=== PATIENT | female | born 1950 | race Caucasian/White ===

== ENCOUNTER 2018-10-06 21:33 | Emergency (ER) | payer MEDICARE ==
[~2018-10-06] VITALS: Ht 162.6 cm; Wt 59.0 kg
[~2018-10-06 21:33] MED LIST: CA C1TAB31 PO; EST45C VG; FA/M1TAB29 PO; FLC1T PO; FLUO20CA25 PO; HAIR PO; HYDR-2890 PO; LD5PT TOP; OXYC-191 PO; SIMV40TA4 PO; VITAMIN B12 IM; VITAMIN PO; ZOLP6.252 PO
--- NOTE | 2018-10-06 21:57 | ED Headache ---
General Chief Complaint: Head/Cervical Problems Stated Complaint: VOMITING; HEADACHE Source: patient, family History of Present Illness Date Seen by Provider: Oct 06, 2018 Time Seen by Provider: 21:53 Initial Comments Onset of headache this morning with associated nausea and intermittent vomiting. States worse than typical headaches. Timing/Duration: constant Severity/Quality: moderate Location: frontal, temporal Prior Headaches/Recent Trauma: occasional headaches Associated Symptoms: No confusion, No fatigue, No facial pain, No fever/chills, No flushing, No loss of consciousness; nausea/vomiting; No nasal congestion, No nasal drainage, No numbness in legs/feet, No rash, No seizures, No sinus infection, No stiff neck, No vision changes, No weakness Allergies and Home Medications Allergies Coded Allergies: mannitol (Unverified Allergy, Unknown, "WHOLE BODY ACHES" VOMITING, 05/20/13) water for injection,sterile (Unverified Allergy, Unknown, "WHOLE BODY ACHES" VOMITING, 05/20/13) zoledronic acid (Unverified Allergy, Unknown, "WHOLE BODY ACHES" VOMITING, 05/20/13) Home Medications Ca Carbonate/Vitamin D3/Vit K 1 Each Tab.chew, 1 EACH PO HS, (Reported) Estrogens,Conjugated 45 Gm Tube, 1 GM VG UD PRN for Q3DAYS, (Reported) Fa/Multivits-Min/Lycopene/Lut 1 Each Tablet, 1 TAB PO DAILY, (Reported) Fluoxetine Hcl 20 Mg Capsule, 20 MG PO DAILY, (Reported) Folic Acid 1 Mg Tablet, 1 MG PO DAILY, (Reported) Hydrocodone Bit/Acetaminophen 1 Each Tablet, 1 TAB PO Q4H, (Reported) PRN PAIN Lidocaine 1 Ea Patch, 1 EACH TOP Q12H, (Reported) Oxycodone Hcl/Acetaminophen 1 Tab Tablet, 1 TAB PO Q4H PRN for PAIN, (Reported) PRN PAIN Promethazine HCl 25 Mg Tablet, 25 MG PO Q6H PRN for NAUSEA/VOMITING Prescribed by: JANELLE BARLOW on 10/06/182224 Simvastatin 40 Mg Tablet, 40 MG PO HS, (Reported) Zolpidem Tartrate 6.25 Mg/Bottle Tab.mphase, 6.25 MG PO HS, (Reported) [Hair & Nail Vitamin] , 2 CAP PO DAILY, (Reported) [Vitamin B12] , 1,000 MCG IM EVERY 4 WEEKS, (Reported) Patient Home Medication List Home Medication List Reviewed: Yes Review of Systems Review of Systems Constitutional: see HPI; No dizziness, No fever; malaise; No weakness Eyes: Denies Blindness, Denies Pain, Denies Photophobia Ears, Nose, Mouth, Throat: denies ear pain, denies ear discharge Respiratory: No cough, No dyspnea on exertion Cardiovascular: No chest pain, No syncope Gastrointestinal: No abdominal pain; nausea, vomiting Musculoskeletal: No back pain, No neck pain Psychiatric/Neurological: Headache; Denies Numbness, Denies Paresthesia, Denies Pre-Existing Deficit, Denies Seizure; Tremors; Denies Weakness Past Fahplyz-Rglycc-Awoptt Hx Past Med/Social Hx: Reviewed Nursing Past Med/Soc Hx Patient Social History Alcohol Use: Denies Use Recreational Drug Use: No Smoking Status: Never a Smoker 2nd Hand Smoke Exposure: No Physical Abuse: No Sexual Abuse: No Mistreated: No Fear: No Physical Exam Vital Signs Vital Signs - First Documented 10/06/18 21:48 Temp 98.2 Pulse 105 Resp 20 B/P (MAP) 147/78 (101) Pulse Ox 97 O2 Delivery Room Air Capillary Refill : Height, Weight, BMI Height: 5'2.00" Weight: 168lbs. oz. 76.374401ci; BMI Method: General Appearance: WD/WN, no apparent distress HEENT: PERRL/EOMI, TMs normal; No photophobia Neck: non-tender, full range of motion, supple Cardiovascular: regular rate, rhythm, no edema, no JVD Respiratory: chest non-tender, lungs clear, normal breath sounds Gastrointestinal: normal bowel sounds, non tender, soft, no organomegaly; No guarding, No rebound Extremities: normal range of motion, non-tender, no pedal edema, no calf tenderness, normal capillary refill Psychiatric: alert, oriented x 3; No lethargic, No unresponsive Crainal Nerves: normal hearing, normal speech; No abnormal speech, No facial asymmetry, No facial droop, No facial paresthesias, No facial weakness, No gaze palsy Motor/Sensory: no motor deficit, no sensory deficit, no pronator drift Skin: normal color, warm/dry; No rash Progress/Results/Core Measures Results/Orders My Orders Orders - JANELLE BARLOW DO Ct Head Wo (10/06/18 21:47) Ketorolac Injection (Toradol Injection) (10/06/18 22:30) Promethazine Injection (Phenergan Injec (10/06/18 22:30) Promethazine Injection (Phenergan Injec (10/06/18 22:19) Medications Given in ED Current Medications Medications Dose Ordered Sig/Rosalina Route Start Time Stop Time Status Last Admin Dose Admin Ketorolac Tromethamine 30 mg ONCE ONCE IM 10/06/18 22:30 10/06/18 22:31 DC 10/06/18 22:31 30 MG Promethazine HCl 25 mg ONCE ONCE IM 10/06/18 22:30 10/06/18 22:39 DC 10/06/18 22:30 25 MG Vital Signs/I&O 10/06/18 10/06/18 21:48 22:39 Temp 98.2 Pulse 105 85 Resp 20 18 B/P (MAP) 147/78 (101) 132/63 (86) Pulse Ox 97 95 O2 Delivery Room Air Room Air Diagnostic Imaging Diagonstic Imaging: CT Plain Films/CT/US/NM/MRI: head Comments normal Reviewed: Reviewed by Me Departure Impression Primary Impression: Headache Qualified Codes: R51 - Headache Disposition: 01 HOME, SELF-CARE Condition: Stable Departure-Patient Inst. Decision time for Depature: 22:19 Referrals: ALEJANDRO BOND DO (PCP/Family) Primary Care Physician Patient Instructions: Headache, Adult (DC) Scripts Promethazine HCl (Promethazine Tablet) 25 Mg Tablet 25 MG PO Q6H PRN for NAUSEA/VOMITING, #10 TAB Prov: JANELLE BARLOW DO 10/06/18 JANELLE BARLOW DO Oct 06, 2018 21:57
--- NOTE | 2018-10-06 22:05 | Diagnostic Imaging Report ---
PROCEDURE: CT head without contrast. TECHNIQUE: Multiple contiguous axial images were obtained through the brain without the use of intravenous contrast. Auto Exposure Controls were utilized during the CT exam to meet ALARA standards for radiation dose reduction. INDICATION: Headache. Dizziness. COMPARISON: None. FINDINGS: No intracranial hemorrhage, mass effect, hydrocephalus or extra-axial fluid collections. No CT evidence of a territorial infarction. Osseous structures are intact. The visualized paranasal sinuses and mastoids are clear. IMPRESSION: No acute intracranial CT findings. Dictated by: Dictated on workstation # [id number]
[2018-10-06] MEDS ORDERED: PROMETHAZINE INJ 25 MG/ML (PHENERGAN) AMP ONE (22:19)
[2018-10-06] MEDS ORDERED: PROM25TA14 PO (22:25)
[2018-10-06] MEDS ORDERED: KETOROLAC 60 MG/2 ML VIAL IM ONE (22:30)
[2018-10-06] MEDS ORDERED: PROMETHAZINE INJ 25 MG/ML (PHENERGAN) AMP IM ONE (22:30)
[2018-10-06] MEDS ORDERED: PROMETHAZINE 25 MG (PHENERGAN) TAB PO ONE (22:30)
[2018-10-06 22:39] VITALS: BP 132/63
== END 2018-10-06 22:39 | disposition home or self-care (01) ==
LOC: EDUNIT# 21:33 → ER FS 21:34
DX: R51 Headache (principal); Z88.8 Allergy status to other drugs, medicaments and biological substances
CPT/HCPCS: 70450

== ENCOUNTER 2019-07-05 22:54 | Emergency (ER) | payer MEDICARE, BC ==
[~2019-07-05] VITALS: Ht 152.4 cm; Wt 50.2 kg
[~2019-07-05 22:54] MED LIST changes: +PROM25TA14 PO
--- OUTSIDE RECORDS SUMMARY | 2019-07-05 23:02 | XMS REPORT | Continuity of Care Document ---
Author Organization Unknown Address Unknown Phone Unavailable Allergies Active Description Code Type Severity Reaction Onset Reported/Identified Relationship to Patient Clinical Status Yes mannitol [id number] Drug Allergy Unknown "WHOLE BODY ACH 05/20/2013 Yes water for injection,sterile [id number] Drug Allergy Unknown "WHOLE BODY ACH 05/20/2013 Yes zoledronic acid [id number] D rug Allergy Unknown "WHOLE BODY ACH 05/20/2013 Medications There is no data. Problems Date Dx Coded Attending Type Code Diagnosis Diagnosed By 05/23/2013 RAYMOND MERINO MD Ot 338. 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 4 CHRONIC PAIN SYNDROME 10/06/2018 RAYMOND MERINO MD Ot 724. 2 LUMBAGO 10/06/2018 RAYMOND MERINO MD Ot V72. 63 PRE-PROCEDURAL LABORATORY EXAMINATION 10/06/2018 RAYMOND MERINO MD Ot V72. 84 EXAM PRE-OPERATIVE NOS 10/06/2018 RAYMOND MERINO MD Ot V74. 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 4 CHRONIC PAIN SYNDROME 10/06/2018 RAYMOND MERINO MD Ot 724. 2 LUMBAGO 10/06/2018 RAYMOND MERINO MD Ot V72. 63 PRE-PROCEDURAL LABORATORY EXAMINATION 10/06/2018 RAYMOND MERINO MD Ot V72. 84 EXAM PRE-OPERATIVE NOS 10/06/2018 RAYMOND MERINO MD Ot V74. 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 Results There is no data. Encounters ACCT No. Visit Date/Time Discharge Status Pt. Type Provider Facility Loc./Unit Complaint [id number] 10/06/2018 21:34:00 019 22:39:00 DIS Emergency JANELLE BARLOW DO [facility] ER FS VOMITING; HEADA FERNANDO [id number] 07/19/2013 06:06:00 014 12:10:00 DIS Outpatient RK HESS MD [facility] SDC LUMBARGO [id number] 07/11/2013 09:40:00 014 23:59:59 CLS Outpatient RK HESS MD [facility] RAD RADICULOPATHY [id number] 07/05/2013 08:16:00 23:59:59 CLS Outpatient RK HESS MD [facility] PREOP LUMBARGO [id number] 05/23/2013 10:50:00 014 15:35:00 DIS Outpatient RAYMOND MERINO MD [facility] SDC CHRONIC PAIN SYNDROME [id number] 05/20/2013 11:45:00 23:59:59 CLS Outpatient RAYMOND MERINO MD [facility] PREOP CHRONIC PAIN SYNDROME [id number] 01/08/2013 14:07:00 23:59:59 CLS Outpatient [id number] 07/03/2012 11:04:00 23:59:59 CLS Outpatient
[2019-07-05] MEDS ORDERED: fentaNYL INJECTION 100 MCG/2 ML AMP IVP ONE (23:15)
[2019-07-05] MEDS ORDERED: ONDANSETRON 4 MG/2 ML (SDV) Z0FRAN IVP ONE (23:15)
[2019-07-05 23:21] LABS: BASOPHILS % (AUTO) 1 % (0-10); EOSINOPHILS % (AUTO) 1 % (0-10); HEMATOCRIT 38 % (35-52); HEMOGLOBIN 12.8 G/DL (11.5-16.0); LYMPHOCYTES % (AUTO) 26 % (12-44); MEAN CORPUSCULAR HEMOGLOBIN 32 PG (25-34); MEAN CORPUSCULAR HGB CONC 34 G/DL (32-36); MEAN CORPUSCULAR VOLUME 94 FL (80-99); MEAN PLATELET VOLUME 10.6 FL (7.4-10.4); MONOCYTES # (AUTO) 0.2 X 10^3 (0.0-1.0); MONOCYTES % (AUTO) 4 % (0-12); NEUTROPHILS # (AUTO) 2.7 X 10^3 (1.8-7.8); NEUTROPHILS % (AUTO) 69 % (42-75); PLATELET COUNT 204 10^3/uL (130-400); RED CELL DISTRIBUTION WIDTH 12.3 % (10.0-14.5); WHITE BLOOD COUNT 3.9 10^3/uL (4.3-11.0)
[2019-07-05 23:35] LABS: BUN/CREATININE RATIO 16; CALCIUM 8.8 MG/DL (8.5-10.1); CARBON DIOXIDE 23 MMOL/L (21-32); CHLORIDE 103 MMOL/L (98-107); CREATININE SERUM 0.73 MG/DL (0.60-1.30); GFR ESTIMATED > 60; GLUCOSE 157 MG/DL (70-105); POTASSIUM 3.7 MMOL/L (3.6-5.0); SODIUM 140 MMOL/L (135-145)
[2019-07-06] MEDS ORDERED: PROC-1 PO (00:07)
[2019-07-06] MEDS ORDERED: PROCHLORPERAZINE 10 MG/2ML INJ (COMPAZINE) IV ONE (00:15)
[2019-07-06 00:27] VITALS: BP 128/73
[2019-07-06] MEDS ORDERED: diphenhydrAMINE 50 MG/ML INJ (BENADRYL) IVP ONE (00:30)
--- NOTE | 2019-07-06 05:35 | Diagnostic Imaging Report ---
PROCEDURE: CT head without contrast. TECHNIQUE: Multiple contiguous axial images were obtained through the brain without the use of intravenous contrast. Auto Exposure Controls were utilized during the CT exam to meet ALARA standards for radiation dose reduction. INDICATION: Headache. Nausea and vomiting. COMPARISON: CT head on 10/06/2018. FINDINGS: No large acute territorial ischemia, mass, or hemorrhage. No midline shift or mass effect. Decreased attenuation is seen in the periventricular and subcortical white matter. The ventricles and cortical sulci are prominent. The basilar cisterns are patent and unremarkable. The calvarium is intact. The visualized paranasal sinuses are clear. IMPRESSION: 1. No large acute territorial ischemia, mass, or hemorrhage. 2. Chronic microvascular disease. 3. Generalized parenchymal volume loss. Agree with overnight report. Dictated by: Dictated on workstation # [id number]
--- NOTE | 2019-07-06 05:56 | ED General ---
General Chief Complaint: Neuro-Stroke Like Symptoms Stated Complaint: HEADACHE,VOMITING Nursing Triage Note: Patient presents to the ER with complaints of headache and vomiting. Patient is confused. Patient is alert to place but is unable to tell this RN the year. Patient is unable to answer most questions. Patient does state that her is typically present when she goes to the doctor to answer questions. confirms she has alzheimers. Nursing Sepsis Screen: No Definite Risk Source of Information: Patient, Caregiver Exam Limitations: No Limitations History of Present Illness Date Seen by Provider: July 06, 2019 Time Seen by Provider: 23:05 Initial Comments Patient with history of dementia and migraine headaches who presents with typical headache starting 4 hours prior to ED arrival. No falls, trauma. No extremity weakness loss of sensation. This is not the worst headache the patient's life. Pt. Patient is not more confused than normal. No recent falls, injuries. Ibuprofen taken prior to ED arrival without improvement. History obtained from the patient's spouse. Timing/Duration: 4-6 Hours Severity: Moderate Modifying Factors: improves with Medication Associated Systoms: Other Allergies and Home Medications Allergies Coded Allergies: mannitol (Unverified Allergy, Unknown, "WHOLE BODY ACHES" VOMITING, 05/20/13) water for injection,sterile (Unverified Allergy, Unknown, "WHOLE BODY ACHES" VOMITING, 05/20/13) zoledronic acid (Unverified Allergy, Unknown, "WHOLE BODY ACHES" VOMITING, 05/20/13) Home Medications Ca Carbonate/Vitamin D3/Vit K 1 Each Tab.chew, 1 EACH PO HS, (Reported) Estrogens,Conjugated 45 Gm Tube, 1 GM VG UD PRN for Q3DAYS, (Reported) Fa/Multivits-Min/Lycopene/Lut 1 Each Tablet, 1 TAB PO DAILY, (Reported) Fluoxetine Hcl 20 Mg Capsule, 20 MG PO DAILY, (Reported) Folic Acid 1 Mg Tablet, 1 MG PO DAILY, (Reported) Hydrocodone Bit/Acetaminophen 1 Each Tablet, 1 TAB PO Q4H, (Reported) PRN PAIN Lidocaine 1 Ea Patch, 1 EACH TOP Q12H, (Reported) Oxycodone Hcl/Acetaminophen 1 Tab Tablet, 1 TAB PO Q4H PRN for PAIN, (Reported) PRN PAIN Prochlorperazine Maleate 10 Mg Tablet, 10 MG PO Q12H PRN for NAUSEA-1ST LINE Prescribed by: UZAIR ZAIDI on 07/06/19 0007 Promethazine HCl 25 Mg Tablet, 25 MG PO Q6H PRN for NAUSEA/VOMITING Prescribed by: JANELLE BARLOW on 10/06/182224 Simvastatin 40 Mg Tablet, 40 MG PO HS, (Reported) Zolpidem Tartrate 6.25 Mg/Bottle Tab.mphase, 6.25 MG PO HS, (Reported) [Hair & Nail Vitamin] , 2 CAP PO DAILY, (Reported) [Vitamin B12] , 1,000 MCG IM EVERY 4 WEEKS, (Reported) Patient Home Medication List Home Medication List Reviewed: Yes Review of Systems Review of Systems Constitutional: no symptoms reported EENTM: no symptoms reported Respiratory: no symptoms reported Cardiovascular: no symptoms reported Genitourinary: no symptoms reported Musculoskeletal: no symptoms reported Skin: no symptoms reported Psychiatric/Neurological: See HPI Hematologic/Lymphatic: No Symptoms Reported Immunological/Allergic: no symptoms reported Past Qmiguqh-Vknzyw-Qgvwqq Hx Past Med/Social Hx: Reviewed Nursing Past Med/Soc Hx Patient Social History Alcohol Use: Denies Use Recreational Drug Use: No Smoking Status: Never a Smoker 2nd Hand Smoke Exposure: No Recent Foreign Travel: No Contact w/Someone Who Travel: No Recent Infectious Disease Expo: No Physical Abuse: No Sexual Abuse: No Mistreated: No Fear: No Past Medical History Surgeries: Yes (GASTRIC BYPASS, HIP SX, BILAT SHOULDER, SPINE SX, SACROLILIAC IMPLANT) Respiratory: No Cardiac: No Neurological: Yes (Alzheimers) Gastrointestinal: No Musculoskeletal: Yes Endocrine: No HEENT: No Cancer: No Psychosocial: No Integumentary: No Blood Disorders: No Physical Exam Vital Signs Vital Signs - First Documented 07/05/19 23:00 Temp 37.0 Pulse 99 Resp 18 B/P (MAP) 135/63 (87) Pulse Ox 96 O2 Delivery Room Air Capillary Refill : Less Than 3 Seconds Height, Weight, BMI Height: 5'4.00" Weight: 130lbs. oz. 58.740954jw; 21.00 BMI Method:Stated General Appearance: No Apparent Distress, WD/WN Eyes: Bilateral Eye Normal Inspection, Bilateral Eye PERRL, Bilateral Eye EOMI HEENT: PERRL/EOMI, TMs Normal Neck: Full Range of Motion, Normal Inspection, Supple Respiratory: Chest Non Tender, Lungs Clear Cardiovascular: Regular Rate, Rhythm Gastrointestinal: Normal Bowel Sounds Back: Normal Inspection Neurologic/Psychiatric: Alert, No Motor/Sensory Deficits, junior accountant II-XII Norm as Tested; No Abnormal Gait Skin: Normal Color, Warm/Dry Focused Exam Sepsis Stage: Ruled Out Progress/Results/Core Measures Suspected Sepsis Recent Fever Within 48 Hours: No Infection Criteria Present: None New/Unexplained Altered Menta: No Sepsis Screen: No Definite Risk SIRS Temperature: Pulse: 76 Respiratory Rate: 18 Laboratory Tests 07/05/19 23:13: White Blood Count 3.9L Blood Pressure 128 /73 Mean: 87 Laboratory Tests 07/05/19 23:13: Creatinine 0.73, Platelet Count 204 Results/Orders Lab Results Laboratory Tests Test 07/05/19 23:13 Range/Units White Blood Count 3.9 L 4.3-11.0 10^3/uL Red Blood Count 4.04 L 4.35-5.85 10^6/uL Hemoglobin 12.8 11.5-16.0 G/DL Hematocrit 38 35-52 % Mean Corpuscular Volume 94 80-99 FL Mean Corpuscular Hemoglobin 32 25-34 PG Mean Corpuscular Hemoglobin Concent 34 32-36 G/DL Red Cell Distribution Width 12.3 10.0-14.5 % Platelet Count 204 130-400 10^3/uL Mean Platelet Volume 10.6 H 7.4-10.4 FL Neutrophils (%) (Auto) 69 42-75 % Lymphocytes (%) (Auto) 26 12-44 % Monocytes (%) (Auto) 4 0-12 % Eosinophils (%) (Auto) 1 0-10 % Basophils (%) (Auto) 1 0-10 % Neutrophils # (Auto) 2.7 1.8-7.8 X 10^3 Lymphocytes # (Auto) 1.0 1.0-4.0 X 10^3 Monocytes # (Auto) 0.2 0.0-1.0 X 10^3 Eosinophils # (Auto) 0.0 0.0-0.3 10^3/uL Basophils # (Auto) 0.0 0.0-0.1 10^3/uL Sodium Level 140 135-145 MMOL/L Potassium Level 3.7 3.6-5.0 MMOL/L Chloride Level 103 98-107 MMOL/L Carbon Dioxide Level 23 21-32 MMOL/L Anion Gap 14 5-14 MMOL/L Blood Urea Nitrogen 12 7-18 MG/DL Creatinine 0.73 0.60-1.30 MG/DL Estimat Glomerular Filtration Rate > 60 BUN/Creatinine Ratio 16 Glucose Level 157 H 70-105 MG/DL Calcium Level 8.8 8.5-10.1 MG/DL Troponin I < 0.30 <0.30 NG/ML My Orders Orders - UZAIR ZAIDI DO Ct Head Wo (07/05/19:05) Cbc With Automated Diff (07/05/19:) Basic Metabolic Panel (07/05/19:) Ua Culture If Indicated (07/05/19:) Ekg Tracing (07/05/19:) Chest 1 View Ap/Pa Only (07/05/19:05) Ondansetron Injection (Zofran Injectio (07/05/19 23:15) Fentanyl Injection (Sublimaze Injection (07/05/19 23:15) Troponin I Fs (07/05/19:05) Prochlorperazine Injection (Compazine In (07/06/19 00:15) Diphenhydramine Injection (Benadryl Inje (07/06/19 00:30) Medications Given in ED Current Medications Medications Dose Ordered Sig/Rosalina Route Start Time Stop Time Status Last Admin Dose Admin Diphenhydramine HCl 25 mg ONCE ONCE IVP 07/06/19 00:30 07/06/19 00:27 DC 07/06/19 00:23 25 MG Fentanyl Citrate 50 mcg ONCE ONCE IVP 07/05/19 23:15 07/05/19 23:16 DC 07/05/19 23:30 50 MCG Ondansetron HCl 4 mg ONCE ONCE IVP 07/05/19 23:15 07/05/19 23:16 DC 07/05/19 23:30 4 MG Prochlorperazine Edisylate 10 mg ONCE ONCE IV 07/06/19 00:15 07/06/19 00:16 DC 07/06/19 00:23 10 MG Vital Signs/I&O 07/05/19 07/06/19 23:00 00:27 Temp 37.0 Pulse 99 76 Resp 18 18 B/P (MAP) 135/63 (87) 128/73 Pulse Ox 96 98 O2 Delivery Room Air Room Air Capillary Refill : Less Than 3 Seconds Blood Pressure Mean: 87 Departure Communication (Admissions) CT head negative. Typical migraine headache per patient spouse. Patient's headache and nausea treated with significant improvement. Lab and imaging reviewed nondiagnostic. Will continue supportive treatment with PCP follow-up. Impression Primary Impression: Migraine Disposition: 01 HOME, SELF-CARE Condition: Improved Departure-Patient Inst. Decision time for Depature: 00:30 Referrals: ALEJANDRO BOND DO (PCP) Primary Care Physician Patient Instructions: Migraines (DC) Add. Discharge Instructions: Please go home and rest. Take Excedrin Migaine if headache persists and Compazine as needed for nausea. Follow up with your PCP in 2-3 days. Return to the ED if new or worsening symptoms. All discharge instructions reviewed with patient and/or family. Voiced understanding. Scripts Prochlorperazine Maleate (Compazine) 10 Mg Tablet 10 MG PO Q12H PRN for NAUSEA-1ST LINE, #10 TAB Prov: UZAIR ZAIDI DO 07/06/19 UZAIR ZAIDI DO July 06, 2019 05:56
--- NOTE | 2019-07-06 06:19 | Diagnostic Imaging Report ---
INDICATION: Headache, nausea, vomiting, stroke like symptoms. TECHNIQUE: Single view chest 11:23 PM. CORRELATION STUDY: None FINDINGS: Heart size within normal limits. Vasculature slightly prominent without evidence of overt failure. Mildly prominent interstitial markings. No infiltrate. Thoracic spine stimulator lead is present. IMPRESSION: 1. Negative for acute abnormality of the chest. Dictated by: Dictated on workstation # [id number]
== END 2019-07-06 00:27 | disposition home or self-care (01) ==
LOC: EDUNIT# 22:54 → ER FS 22:57
DX: G43.909 Migraine, unspecified, not intractable, without status migrainosus (principal); Z88.8 Allergy status to other drugs, medicaments and biological substances
CPT/HCPCS: 36415; 70450; 71045; 80048; 84484; 85025

== ENCOUNTER 2019-08-23 21:09 | Emergency (ER) | payer MEDICARE, BC ==
[~2019-08-23 21:09] MED LIST changes: +PROC-1 PO
--- NOTE | 2019-08-23 21:19 | ED General ---
General Chief Complaint: Abdominal/GI Problems Stated Complaint: VOMITING,SHAKING Exam Limitations: Physical Impairments (history of Alzheimer's) History of Present Illness Date Seen by Provider: Aug 23, 2019 Time Seen by Provider: 21:17 Initial Comments 68-year-old female brought in with headache, vomiting and shaking. Patient has had a headache most the day. She has a history of migraines and previous visits for similar symptoms. Patient does have Alzheimer so a stent may be limited however she seems to answer questions appropriately. She denies any cough, fevers, chills, abdominal pain. Allergies and Home Medications Allergies Coded Allergies: mannitol (Unverified Allergy, Unknown, "WHOLE BODY ACHES" VOMITING, 05/20/13) water for injection,sterile (Unverified Allergy, Unknown, "WHOLE BODY ACHES" VOMITING, 05/20/13) zoledronic acid (Unverified Allergy, Unknown, "WHOLE BODY ACHES" VOMITING, 05/20/13) Home Medications Ca Carbonate/Vitamin D3/Vit K 1 Each Tab.chew, 1 EACH PO HS, (Reported) Estrogens,Conjugated 45 Gm Tube, 1 GM VG UD PRN for Q3DAYS, (Reported) Fa/Multivits-Min/Lycopene/Lut 1 Each Tablet, 1 TAB PO DAILY, (Reported) Fluoxetine Hcl 20 Mg Capsule, 20 MG PO DAILY, (Reported) Folic Acid 1 Mg Tablet, 1 MG PO DAILY, (Reported) Hydrocodone Bit/Acetaminophen 1 Each Tablet, 1 TAB PO Q4H, (Reported) PRN PAIN Lidocaine 1 Ea Patch, 1 EACH TOP Q12H, (Reported) Oxycodone Hcl/Acetaminophen 1 Tab Tablet, 1 TAB PO Q4H PRN for PAIN, (Reported) PRN PAIN Prochlorperazine Maleate 10 Mg Tablet, 10 MG PO Q12H PRN for NAUSEA-1ST LINE Prescribed by: UZAIR ZAIDI on 07/06/196 Promethazine HCl 25 Mg Tablet, 25 MG PO Q6H PRN for NAUSEA/VOMITING Prescribed by: JANELLE BARLOW on 10/06/182224 Simvastatin 40 Mg Tablet, 40 MG PO HS, (Reported) Zolpidem Tartrate 6.25 Mg/Bottle Tab.mphase, 6.25 MG PO HS, (Reported) [Hair & Nail Vitamin] , 2 CAP PO DAILY, (Reported) [Vitamin B12] , 1,000 MCG IM EVERY 4 WEEKS, (Reported) Patient Home Medication List Home Medication List Reviewed: Yes Review of Systems Review of Systems Constitutional: No chills, No fever EENTM: no symptoms reported Respiratory: No cough, No short of breath Cardiovascular: No chest pain Gastrointestinal: No abdominal pain; nausea, vomiting Musculoskeletal: no symptoms reported Skin: no symptoms reported Psychiatric/Neurological: See HPI, Headache Past Vubnyrz-Dmifrm-Iadjgg Hx Patient Social History 2nd Hand Smoke Exposure: No Recent Foreign Travel: No Contact w/Someone Who Travel: No Past Medical History Surgeries: Yes (GASTRIC BYPASS, HIP SX, BILAT SHOULDER, SPINE SX, SACROLILIAC IMPLANT) Respiratory: No Cardiac: No Neurological: Yes (Alzheimers) Gastrointestinal: No Musculoskeletal: Yes Endocrine: No HEENT: No Cancer: No Psychosocial: No Integumentary: No Blood Disorders: No Physical Exam Vital Signs Vital Signs - First Documented 08/23/19 21:15 Temp 36.4 Pulse 114 Resp 16 B/P (MAP) 161/76 (104) Pulse Ox 97 O2 Delivery Room Air Capillary Refill : Height, Weight, BMI Height: 5'4.00" Weight: 130lbs. oz. 58.731234iz; 21.00 BMI Method:Stated General Appearance: No Apparent Distress HEENT: PERRL/EOMI Neck: Full Range of Motion, Normal Inspection Respiratory: Lungs Clear, Normal Breath Sounds Cardiovascular: Regular Rate, Rhythm, No Edema Gastrointestinal: Non Tender, Soft Extremity: Normal Capillary Refill, Normal Inspection Neurologic/Psychiatric: No Motor/Sensory Deficits Skin: Normal Color, Warm/Dry Progress/Results/Core Measures Suspected Sepsis SIRS Temperature: Pulse: Respiratory Rate: Laboratory Tests 08/23/19 21:20: White Blood Count 2.6L Blood Pressure / Mean: Laboratory Tests 08/23/19 21:20: Creatinine 0.69, Platelet Count 245, Total Bilirubin 0.3 Results/Orders Lab Results Laboratory Tests Test 08/23/19 21:20 Range/Units White Blood Count 2.6 L 4.3-11.0 10^3/uL Red Blood Count 4.23 L 4.35-5.85 10^6/uL Hemoglobin 13.3 11.5-16.0 G/DL Hematocrit 41 35-52 % Mean Corpuscular Volume 96 80-99 FL Mean Corpuscular Hemoglobin 31 25-34 PG Mean Corpuscular Hemoglobin Concent 33 32-36 G/DL Red Cell Distribution Width 12.5 10.0-14.5 % Platelet Count 245 130-400 10^3/uL Mean Platelet Volume 10.5 H 7.4-10.4 FL Neutrophils (%) (Auto) 63 42-75 % Lymphocytes (%) (Auto) 30 12-44 % Monocytes (%) (Auto) 5 0-12 % Eosinophils (%) (Auto) 0 0-10 % Basophils (%) (Auto) 1 0-10 % Neutrophils # (Auto) 1.7 L 1.8-7.8 X 10^3 Lymphocytes # (Auto) 0.8 L 1.0-4.0 X 10^3 Monocytes # (Auto) 0.1 0.0-1.0 X 10^3 Eosinophils # (Auto) 0.0 0.0-0.3 10^3/uL Basophils # (Auto) 0.0 0.0-0.1 10^3/uL Sodium Level 142 135-145 MMOL/L Potassium Level 3.9 3.6-5.0 MMOL/L Chloride Level 103 98-107 MMOL/L Carbon Dioxide Level 22 21-32 MMOL/L Anion Gap 17 H 5-14 MMOL/L Blood Urea Nitrogen 14 7-18 MG/DL Creatinine 0.69 0.60-1.30 MG/DL Estimat Glomerular Filtration Rate > 60 BUN/Creatinine Ratio 20 Glucose Level 173 H 70-105 MG/DL Calcium Level 9.1 8.5-10.1 MG/DL Corrected Calcium 8.9 8.5-10.1 MG/DL Total Bilirubin 0.3 0.1-1.0 MG/DL Aspartate Amino Transf (AST/SGOT) 28 5-34 U/L Alanine Aminotransferase (ALT/SGPT) 19 0-55 U/L Alkaline Phosphatase 77 40-136 U/L Total Protein 6.9 6.4-8.2 GM/DL Albumin 4.2 3.2-4.5 GM/DL Lipase 25 8-78 U/L My Orders Orders - JIMENEZ,FLORY L DO Cbc With Automated Diff (08/23/19 21:20) Comprehensive Metabolic Panel (08/23/19 21:20) Lipase (08/23/19 21:20) Diphenhydramine Injection (Benadryl Inje (08/23/19 21:20) Metoclopramide Injection (Reglan Injecti (08/23/19 21:20) Ns Iv 1000 Ml (Sodium Chloride 0.9%) (08/23/19 21:20) Ed Iv/Invasive Line Start (08/23/19 21:20) Ketorolac Injection (Toradol Injection) (08/23/19 21:20) Abdomen Flat & Upright/Decub (08/23/19 21:21) Vital Signs/I&O 08/23/19 21:15 Temp 36.4 Pulse 114 Resp 16 B/P (MAP) 161/76 (104) Pulse Ox 97 O2 Delivery Room Air Capillary Refill : Progress Note : Time: 21:55 Progress Note Patient's symptoms improved with treatment. Patient does have a leukopenia. Recommend she follow-up with her primary care provider to have this further evaluated. Patient's otherwise stable will be discharged Diagnostic Imaging Diagonstic Imaging: Xray Plain Films/CT/US/NM/MRI: abdomen Comments [facility] [place] NAME: EDWIGE MÉNDEZ [facility] REC#: [id number] PT STATUS: REG ER : 1950 PHYSICIAN: FLORY JIMENEZ DO ADMIT DATE: 08/23/19/ER FS Draft Date of Exam:08/23/19 ABDOMEN FLAT & UPRIGHT/DECUB INDICATION: Headache with nausea and vomiting. EXAMINATION: Abdomen. FINDINGS: The lung bases are clear. Bowel gas pattern is nonspecific. There has been bilateral SI joint fusion. There are also postoperative changes in the lumbar spine. A spinal stimulator is in place. There are surgical clips in the right upper quadrant. IMPRESSION: Nonspecific bowel gas pattern. Reviewed: Reviewed by Me, Reviewed/Discussed Departure Impression Primary Impression: Migraine Qualified Codes: G43.909 - Migraine, unspecified, not intractable, without status migrainosus Additional Impression: Leukopenia Qualified Codes: D72.819 - Decreased white blood cell count, unspecified Disposition: 01 HOME, SELF-CARE Condition: Stable Departure-Patient Inst. Referrals: ALEJANDRO BOND DO (PCP/Family) Primary Care Physician Patient Instructions: Home Headache Remedies, Migraines (DC), Neutropenia (DC) Add. Discharge Instructions: Follow-up with your primary care provider next week for recheck your symptoms and continuation of care All discharge instructions reviewed with patient and/or family. Voiced understanding. FLORY JIMENEZ DO Aug 23, 2019 21:19
[2019-08-23] MEDS ORDERED: KETOROLAC 30 MG/ML VIAL IVP STA (21:20)
[2019-08-23] MEDS ORDERED: diphenhydrAMINE 50 MG/ML INJ (BENADRYL) IV STA (21:20)
[2019-08-23] MEDS ORDERED: METOCLOPRAMIDE INJ 10 MG/2 ML (REGLAN) IVP STA (21:20)
[2019-08-23] MEDS ORDERED: NS IV 1000 ML 1,000 ML IV STA (21:20)
[2019-08-23 21:28] LABS: BASOPHILS % (AUTO) 1 % (0-10); EOSINOPHILS % (AUTO) 0 % (0-10); HEMATOCRIT 41 % (35-52); HEMOGLOBIN 13.3 G/DL (11.5-16.0); LYMPHOCYTES # (AUTO) 0.8 X 10^3 (1.0-4.0); LYMPHOCYTES % (AUTO) 30 % (12-44); MEAN CORPUSCULAR HEMOGLOBIN 31 PG (25-34); MEAN CORPUSCULAR HGB CONC 33 G/DL (32-36); MEAN CORPUSCULAR VOLUME 96 FL (80-99); MEAN PLATELET VOLUME 10.5 FL (7.4-10.4); MONOCYTES # (AUTO) 0.1 X 10^3 (0.0-1.0); MONOCYTES % (AUTO) 5 % (0-12); NEUTROPHILS # (AUTO) 1.7 X 10^3 (1.8-7.8); NEUTROPHILS % (AUTO) 63 % (42-75); PLATELET COUNT 245 10^3/uL (130-400); RED CELL DISTRIBUTION WIDTH 12.5 % (10.0-14.5); WHITE BLOOD COUNT 2.6 10^3/uL (4.3-11.0)
[2019-08-23 21:46] LABS: ALANINE AMINOTRANSFERASE 19 U/L (0-55); ALBUMIN 4.2 GM/DL (3.2-4.5); ALKALINE PHOSPHATASE 77 U/L (40-136); BILIRUBIN,TOTAL 0.3 MG/DL (0.1-1.0); BUN/CREATININE RATIO 20; CALCIUM 9.1 MG/DL (8.5-10.1); CARBON DIOXIDE 22 MMOL/L (21-32); CHLORIDE 103 MMOL/L (98-107); CREATININE SERUM 0.69 MG/DL (0.60-1.30); GFR ESTIMATED > 60; GLUCOSE 173 MG/DL (70-105); LIPASE 25 U/L (8-78); POTASSIUM 3.9 MMOL/L (3.6-5.0); SODIUM 142 MMOL/L (135-145); TOTAL PROTEIN 6.9 GM/DL (6.4-8.2)
--- NOTE | 2019-08-23 21:49 | Diagnostic Imaging Report ---
INDICATION: Headache with nausea and vomiting. EXAMINATION: Abdomen. FINDINGS: The lung bases are clear. Bowel gas pattern is nonspecific. There has been bilateral SI joint fusion. There are also postoperative changes in the lumbar spine. A spinal stimulator is in place. There are surgical clips in the right upper quadrant. IMPRESSION: Nonspecific bowel gas pattern. Dictated by: Dictated on workstation # [id number]
[2019-08-23 21:56] VITALS: BP 161/76
--- OUTSIDE RECORDS SUMMARY | 2019-08-23 22:12 | XMS REPORT | Continuity of Care Document ---
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 Results Test Result Range Complete blood count (CBC) with automate d white blood cell (WBC) differential - 07/05/19 23:13 Blood leukocytes automated count (number/volume) 3.9 10*3/uL 4.3-11.0 Blood erythrocytes automated count (number/volume) 4.04 10*6/uL 4.35-5.85 Venous blood hemoglobin measurement (mass/volume) 12.8 g/dL 11.5-16.0 Blood hematocrit (volume fraction) 38 % 35-52 Automated erythrocyte mean corpuscular volume 94 [ foz_us] 80-99 Automated erythrocyte mean corpuscular h emoglobin (mass per erythrocyte) 32 pg 25-34 Automated erythrocyte mean corpuscular h emoglobin concentration measurement (mass/volume) 34 g/dL 32-36 Automated erythrocyte distribution width ratio 12. 3 % 10.0- 14.5 Automated blood platelet count (count/volume) 204 10*3/uL 130-400 Automated blood platelet mean volume measurement 10.6 [foz_us] 7.4-10.4 Automated blood neutrophils/100 leukocytes 69 % 42-75 Automated blood lymphocytes/100 leukocytes 26 % 12-44 Blood monocytes/100 leukocytes 4 % 0-12 Automated blood eosinophils/100 leukocytes 1 % 0-10 Automated blood basophils/100 leukocytes 1 % 0-10 Blood neutrophils automated count (number/volume) 2.7 10*3 1.8-7.8 Blood lymphocytes automated count (number/volume) 1.0 10*3 1.0-4.0 Blood monocytes automated count (number/volume) 0. 2 10*3 0.0-1.0 Automated eosinophil count 0.0 10*3/uL 0 .0-0.3 Automated blood basophil count (count/volume) 0.0 10*3/uL 0.0-0.1 Whole blood basic metabolic panel - 06/14 04/04 23:13 Serum or plasma sodium measurement (moles/volume) 140 mmol/L 135-145 Serum or plasma potassium measurement (moles/volume) 3.7 mmol/L 3.6-5.0 Serum or plasma chloride measurement (moles/volume) 103 mmol/L 98-107 Carbon dioxide 23 mmol/L 21-32 Serum or plasma anion gap determination (moles/volume) 14 mmol/L 5-14 Serum or plasma urea nitrogen measurement (mass/volume ) 12 mg/dL 7-18 Serum or plasma creatinine measurement (mass/volume) 0.73 mg/dL 0.60-1.30 Serum or plasma urea nitrogen/creatinine mass ratio 16 NRG Serum or plasma creatinine measurement w ith calculation of estimated glomerular filtration rate > NRG Serum or plasma glucose measurement (mass/volume) 157 mg/dL 70-105 Serum or plasma calcium measurement (mass/volume) 8.8 mg/dL 8.5-10.1 TROPONIN I FS - 07/05/19 23:13 TROPONIN I FS < 0.30 <0.30 Complete blood count (CBC) with automate d white blood cell (WBC) differential - 08/23/19 21:20 Blood leukocytes automated count (number/volume) 2.6 10*3/uL 4.3-11.0 Blood erythrocytes automated count (number/volume) 4.23 10*6/uL 4.35-5.85 Venous blood hemoglobin measurement (mass/volume) 13.3 g/dL 11.5-16.0 Blood hematocrit (volume fraction) 41 % 35-52 Automated erythrocyte mean corpuscular volume 96 [ foz_us] 80-99 Automated erythrocyte mean corpuscular h emoglobin (mass per erythrocyte) 31 pg 25-34 Automated erythrocyte mean corpuscular h emoglobin concentration measurement (mass/volume) 33 g/dL 32-36 Automated erythrocyte distribution width ratio 12. 5 % 10.0- 14.5 Automated blood platelet count (count/volume) 245 10*3/uL 130-400 Automated blood platelet mean volume measurement 10.5 [foz_us] 7.4-10.4 Automated blood neutrophils/100 leukocytes 63 % 42-75 Automated blood lymphocytes/100 leukocytes 30 % 12-44 Blood monocytes/100 leukocytes 5 % 0-12 Automated blood eosinophils/100 leukocytes 0 % 0-10 Automated blood basophils/100 leukocytes 1 % 0-10 Blood neutrophils automated count (number/volume) 1.7 10*3 1.8-7.8 Blood lymphocytes automated count (number/volume) 0.8 10*3 1.0-4.0 Blood monocytes automated count (number/volume) 0. 1 10*3 0.0-1.0 Automated eosinophil count 0.0 10*3/uL 0 .0-0.3 Automated blood basophil count (count/volume) 0.0 10*3/uL 0.0-0.1 Comprehensive metabolic panel - 08/23/19 21:20 Serum or plasma sodium measurement (moles/volume) 142 mmol/L 135-145 Serum or plasma potassium measurement (moles/volume) 3.9 mmol/L 3.6-5.0 Serum or plasma chloride measurement (moles/volume) 103 mmol/L 98-107 Carbon dioxide 22 mmol/L 21-32 Serum or plasma anion gap determination (moles/volume) 17 mmol/L 5-14 Serum or plasma urea nitrogen measurement (mass/volume ) 14 mg/dL 7-18 Serum or plasma creatinine measurement (mass/volume) 0.69 mg/dL 0.60-1.30 Serum or plasma urea nitrogen/creatinine mass ratio 20 NRG Serum or plasma creatinine measurement w ith calculation of estimated glomerular filtration rate > NRG Serum or plasma glucose measurement (mass/volume) 173 mg/dL 70-105 Serum or plasma calcium measurement (mass/volume) 9.1 mg/dL 8.5-10.1 Serum or plasma total bilirubin measurement (mass/volu me) 0.3 mg/dL 0.1-1.0 Serum or plasma alkaline phosphatase tess surement (enzymatic activity/volume) 77 U/L 40-136 Serum or plasma aspartate aminotransfera se measurement (enzymatic activity/volume) 28 U/L 5-34 Serum or plasma alanine aminotransferase measurement (enzymatic activity/volume) 19 U/L 0-55 Serum or plasma protein measurement (mass/volume) 6.9 g/dL 6.4-8.2 Serum or plasma albumin measurement (mass/volume) 4.2 g/dL 3.2-4.5 CALCIUM CORRECTED 8.9 mg/dL 8.5-10.1 Lipase - 08/23/19 21:20 Lipase 25 U/L 8-78 Encounters ACCT No. Visit Date/Time Discharge Status Pt. Type Provider Facility Loc./Unit Complaint [id number] 08/23/2019 21:10:00 020 22:04:00 DIS Emergency JIMENEZ FLORY LOAIZA [facility] ER FS VOMITING,SHAKING [id number] 07/05/2019 22:57:00 020 00:27:00 DIS Emergency UZAIR ZAIDI DO [facility] ER FS HEADACHE,VOMITING [id number] 10/06/2018 21:34:00 019 22:39:00 DIS Emergency ROVENSTINE JANELLE LOAIZA [facility] ER FS VOMITING; HEADA FERNANDO [id number] 07/19/2013 06:06:00 014 12:10:00 DIS Outpatient JIMENA CONCEPCION, RK Wiseman [facility] LUMBARGO [id number] 07/11/2013 09:40:00 23:59:59 CLS Outpatient RK HESS MD [facility] RAD RADICULOPATHY [id number] 07/05/2013 08:16:00 23:59:59 CLS Outpatient RK HESS MD [facility] PREOP LUMBARGO [id number] 05/23/2013 10:50:00 15:35:00 DIS Outpatient RAYMOND MERINO MD [facility] CHRONIC PAIN SYNDROME [id number] 05/20/2013 11:45:00 23:59:59 CLS Outpatient RAYMOND MERINO MD [facility] CHRONIC PAIN SYNDROME [id number] 01/08/2013 14:07:00 23:59:59 CLS Outpatient [id number] 07/03/2012 11:04:00 23:59:59 CLS Outpatient
== END 2019-08-23 22:04 | disposition home or self-care (01) ==
LOC: EDUNIT# 21:09 → ER FS 21:10
DX: G43.909 Migraine, unspecified, not intractable, without status migrainosus (principal); D72.819 Decreased white blood cell count, unspecified; Z88.8 Allergy status to other drugs, medicaments and biological substances
CPT/HCPCS: 36415; 74019; 80053; 83690; 85025

== ENCOUNTER → 2019-09-19 | Outpatient (CLI) | payer MEDICARE, BC ==
--- NOTE | 2019-09-19 14:44 | Diagnostic Imaging Report ---
INDICATION: Fall and left rib pain. Time of exam 1:26 PM Multiple views left ribs were obtained. There are several lower left rib fractures. These are nondisplaced. There appears to be fractures involving approximately 5th, 6th and 7th ribs. There could potentially be a right 8th rib fracture as well. No parenchymal contusion, effusion or pneumothorax is identified. IMPRESSION: Multiple nondisplaced lower left rib fractures. Dictated by: Dictated on workstation # [id number]
--- NOTE | 2019-09-19 14:51 | Diagnostic Imaging Report ---
INDICATION: Fall and chest pain. Time of exam 1:48 PM Correlation is made with prior chest from 07/05/2019. Heart size normal. Paddle stimulator overlies the mid thoracic spine. Lungs are clear. No infiltrates are seen. There is no effusion or pneumothorax. Lower left rib fractures again noted and seen on a dedicated rib radiographs. IMPRESSION: 1. Left rib fractures. 1. No acute cardiopulmonary process is detected. Dictated by: Dictated on workstation # [id number]
--- NOTE | 2019-09-19 15:30 | Diagnostic Imaging Report ---
INDICATION: Fall with left hip pain. TIME OF EXAM: 1:32 PM FINDINGS: Two views of the left hip demonstrate normal femoral acetabular alignment. Joint space is well maintained. The femoral head and neck are intact. No fractures are seen. Rami are intact. IMPRESSION: No acute bony abnormality is detected. Dictated by: Dictated on workstation # [id number]
== END ==
LOC: RAD FS 13:11
PROVIDERS: ATTEND Emergency Medicine
DX: S22.42XA Multiple fractures of ribs, left side, initial encounter for closed fracture (principal); S20.222A Contusion of left back wall of thorax, initial encounter; M25.552 Pain in left hip; W19.XXXA Unspecified fall, initial encounter
CPT/HCPCS: 71046; 71100; 73502

== ENCOUNTER 2019-10-13 13:41 | Emergency (ER) | payer MEDICARE, BC ==
[~2019-10-13] VITALS: Ht 162.5 cm; Wt 59.0 kg
[2019-10-13] MEDS ORDERED: KETOROLAC 30 MG/ML VIAL IVP ONE (14:00)
[2019-10-13] MEDS ORDERED: ONDANSETRON 4 MG/2 ML (SDV) Z0FRAN IVP ONE (14:00)
[2019-10-13 14:09] LABS: HEMATOCRIT 40 % (35-52); HEMOGLOBIN 13.2 G/DL (11.5-16.0); MEAN CORPUSCULAR HEMOGLOBIN 32 PG (25-34); WHITE BLOOD COUNT 3.9 10^3/uL (4.3-11.0)
[2019-10-13 14:10] LABS: BASOPHILS % (AUTO) 0 % (0-10); EOSINOPHILS % (AUTO) 0 % (0-10); LYMPHOCYTES # (AUTO) 0.6 X 10^3 (1.0-4.0); LYMPHOCYTES % (AUTO) 16 % (12-44); MEAN CORPUSCULAR HGB CONC 33 G/DL (32-36); MEAN CORPUSCULAR VOLUME 95 FL (80-99); MEAN PLATELET VOLUME 10.4 FL (7.4-10.4); MONOCYTES # (AUTO) 0.1 X 10^3 (0.0-1.0); MONOCYTES % (AUTO) 4 % (0-12); NEUTROPHILS # (AUTO) 3.2 X 10^3 (1.8-7.8); NEUTROPHILS % (AUTO) 80 % (42-75); PLATELET COUNT 259 10^3/uL (130-400); RED CELL DISTRIBUTION WIDTH 12.3 % (10.0-14.5)
--- NOTE | 2019-10-13 14:10 | ED General ---
General Chief Complaint: Abdominal/GI Problems Stated Complaint: VOMITING Source of Information: Patient, Family History of Present Illness Date Seen by Provider: Oct 13, 2019 Time Seen by Provider: 14:05 Initial Comments 68-year-old female sent over from [facility] clinic they relate she's had headache nausea or dizziness it is reported she had diarrhea yesterday and multiple episodes of vomiting today she denies vomiting today but admits to nausea she has chronic pain and chronic recurrent migraines is on buprenorphine is status post gastric bypass pt says she has short-term memory loss and can't give much history she is very much alert and responds appropriately to questions but claims she has no idea what year it is appears to be in no distress 's main concerns are headache, says she vomited several times this morning, weak and dizzy and not steady on her feet Allergies and Home Medications Allergies Coded Allergies: mannitol (Unverified Allergy, Unknown, "WHOLE BODY ACHES" VOMITING, 05/20/13) water for injection,sterile (Unverified Allergy, Unknown, "WHOLE BODY ACHES" VOMITING, 05/20/13) zoledronic acid (Unverified Allergy, Unknown, "WHOLE BODY ACHES" VOMITING, 05/20/13) Home Medications Ca Carbonate/Vitamin D3/Vit K 1 Each Tab.chew, 1 EACH PO HS, (Reported) Estrogens,Conjugated 45 Gm Tube, 1 GM VG UD PRN for Q3DAYS, (Reported) Fa/Multivits-Min/Lycopene/Lut 1 Each Tablet, 1 TAB PO DAILY, (Reported) Fluoxetine Hcl 20 Mg Capsule, 20 MG PO DAILY, (Reported) Folic Acid 1 Mg Tablet, 1 MG PO DAILY, (Reported) Hydrocodone Bit/Acetaminophen 1 Each Tablet, 1 TAB PO Q4H, (Reported) PRN PAIN Lidocaine 1 Ea Patch, 1 EACH TOP Q12H, (Reported) Oxycodone Hcl/Acetaminophen 1 Tab Tablet, 1 TAB PO Q4H PRN for PAIN, (Reported) PRN PAIN Prochlorperazine Maleate 10 Mg Tablet, 10 MG PO Q12H PRN for NAUSEA-1ST LINE Prescribed by: UZAIR ZAIDI on 07/06/196 Promethazine HCl 25 Mg Tablet, 25 MG PO Q6H PRN for NAUSEA/VOMITING Prescribed by: JANELLE BARLOW on 10/06/182224 Simvastatin 40 Mg Tablet, 40 MG PO HS, (Reported) Zolpidem Tartrate 6.25 Mg/Bottle Tab.mphase, 6.25 MG PO HS, (Reported) [Hair & Nail Vitamin] , 2 CAP PO DAILY, (Reported) [Vitamin B12] , 1,000 MCG IM EVERY 4 WEEKS, (Reported) Patient Home Medication List Home Medication List Reviewed: Yes Review of Systems Review of Systems Constitutional: dizziness; No fever EENTM: other (+ VINES) Respiratory: no symptoms reported Cardiovascular: no symptoms reported Gastrointestinal: nausea, vomiting Genitourinary: no symptoms reported Musculoskeletal: no symptoms reported Skin: no symptoms reported Psychiatric/Neurological: No Symptoms Reported Past Zdkuoau-Sbzzad-Ptgtde Hx Patient Social History 2nd Hand Smoke Exposure: No Past Medical History Surgeries: Yes (GASTRIC BYPASS, HIP SX, BILAT SHOULDER, SPINE SX, SACROLILIAC IMPLANT) Respiratory: No Cardiac: No Neurological: Yes (Alzheimers) Headaches /Migraines Gastrointestinal: No Musculoskeletal: Yes Endocrine: No HEENT: No Cancer: No Psychosocial: No Integumentary: No Blood Disorders: No Physical Exam Vital Signs Vital Signs - First Documented 10/13/19 14:01 Temp 37.3 Pulse 86 Resp 16 B/P (MAP) 146/77 (100) Pulse Ox 96 O2 Delivery Room Air Capillary Refill : Height, Weight, BMI Height: 5'4.00" Weight: 130lbs. oz. 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) Progress/Results/Core Measures Suspected Sepsis SIRS Temperature: Pulse: Respiratory Rate: Laboratory Tests 10/13/19 13:50: White Blood Count 3.9L Blood Pressure / Mean: Laboratory Tests 10/13/19 13:50: Creatinine 0.66, Platelet Count 259, Total Bilirubin 0.2 Results/Orders Lab Results Laboratory Tests Test 10/13/19 13:50 10/13/19 14:30 Range/Units White Blood Count 3.9 L 4.3-11.0 10^3/uL Red Blood Count 4.17 L 4.35-5.85 10^6/uL Hemoglobin 13.2 11.5-16.0 G/DL Hematocrit 40 35-52 % Mean Corpuscular Volume 95 80-99 FL Mean Corpuscular Hemoglobin 32 25-34 PG Mean Corpuscular Hemoglobin Concent 33 32-36 G/DL Red Cell Distribution Width 12.3 10.0-14.5 % Platelet Count 259 130-400 10^3/uL Mean Platelet Volume 10.4 7.4-10.4 FL Neutrophils (%) (Auto) 80 H 42-75 % Lymphocytes (%) (Auto) 16 12-44 % Monocytes (%) (Auto) 4 0-12 % Eosinophils (%) (Auto) 0 0-10 % Basophils (%) (Auto) 0 0-10 % Neutrophils # (Auto) 3.2 1.8-7.8 X 10^3 Lymphocytes # (Auto) 0.6 L 1.0-4.0 X 10^3 Monocytes # (Auto) 0.1 0.0-1.0 X 10^3 Eosinophils # (Auto) 0.0 0.0-0.3 10^3/uL Basophils # (Auto) 0.0 0.0-0.1 10^3/uL Sodium Level 141 135-145 MMOL/L Potassium Level 3.5 L 3.6-5.0 MMOL/L Chloride Level 103 98-107 MMOL/L Carbon Dioxide Level 24 21-32 MMOL/L Anion Gap 14 5-14 MMOL/L Blood Urea Nitrogen 10 7-18 MG/DL Creatinine 0.66 0.60-1.30 MG/DL Estimat Glomerular Filtration Rate > 60 BUN/Creatinine Ratio 15 Glucose Level 150 H 70-105 MG/DL Calcium Level 9.0 8.5-10.1 MG/DL Corrected Calcium 9.0 8.5-10.1 MG/DL Total Bilirubin 0.2 0.1-1.0 MG/DL Aspartate Amino Transf (AST/SGOT) 41 H 5-34 U/L Alanine Aminotransferase (ALT/SGPT) 29 0-55 U/L Alkaline Phosphatase 95 40-136 U/L Total Protein 6.8 6.4-8.2 GM/DL Albumin 4.0 3.2-4.5 GM/DL Urine Color YELLOW Urine Clarity CLEAR Urine pH 5.5 5-9 Urine Specific [place] >=1.030 1.016-1.022 Urine Protein NEGATIVE NEGATIVE Urine Glucose (UA) NEGATIVE NEGATIVE Urine Ketones TRACE H NEGATIVE Urine Nitrite NEGATIVE NEGATIVE Urine Bilirubin NEGATIVE NEGATIVE Urine Urobilinogen 0.2 < = 1.0 MG/DL Urine Leukocyte Esterase NEGATIVE NEGATIVE Urine RBC (Auto) NEGATIVE NEGATIVE Urine RBC NONE /HPF Urine WBC 2-5 /HPF Urine Squamous Epithelial Cells 2-5 /HPF Urine Crystals NONE /LPF Urine Bacteria TRACE /HPF Urine Casts NONE /LPF Urine Mucus NEGATIVE /LPF Urine Culture Indicated NO My Orders Orders - MONICA HAMEED MD Iv Heplock-Insert (Order) (10/13/19 13:54) Cbc With Automated Diff (10/13/19 13:54) Comprehensive Metabolic Panel (10/13/19 13:54) Urinalysis (10/13/19 13:54) Ct Head Wo (10/13/19 13:54) Ketorolac Injection (Toradol Injection) (10/13/19 14:00) Ondansetron Injection (Zofran Injectio (10/13/19 14:00) Orthostatic Vital Signs (Adult (10/13/19 14:04) Medications Given in ED Current Medications Medications Dose Ordered Sig/Rosalina Route Start Time Stop Time Status Last Admin Dose Admin Ketorolac Tromethamine 30 mg ONCE ONCE IVP 10/13/19 14:00 10/13/19 14:04 DC 10/13/19 14:32 30 MG Ondansetron HCl 4 mg ONCE ONCE IVP 10/13/19 14:00 10/13/19 14:04 DC 10/13/19 14:32 4 MG Vital Signs/I&O 10/13/19 10/13/19 14:01 14:31 Temp 37.3 Pulse 86 82 85 86 Resp 16 B/P (MAP) 146/77 (100) 136/82 (100) 142/70 (94) 144/71 (95) Pulse Ox 96 O2 Delivery Room Air Capillary Refill : Progress Note : Progress Note Hemoglobin 13.2 white blood count 3900 CMP is essentially normal urine shows a specific gravity greater than 1.030 but is otherwise negative orthostats are negative Patient has been walking up and down the halls with a steady gait CT head - atrophy no acute changes pt has not vomited while here at all, has at no time appeared to be in any distress Patient now has apparently become quite anxious to be discharged Departure Impression Primary Impression: Headache Qualified Codes: R51 - Headache Additional Impression: Vomiting Qualified Codes: R11.2 - Nausea with vomiting, unspecified Disposition: HOME, SELF-CARE Condition: Improved Departure-Patient Inst. Decision time for Depature: 16:05 Referrals: ALEJANDRO BOND DO (PCP/Family) Primary Care Physician Patient Instructions: Migraines in Adults Scripts Ondansetron (Ondansetron Odt) 4 Mg Tab.rapdis 4 MG PO TID for na, #15 TAB Prov: MONICA HAMEED MD 10/13/19 MONICA HAMEED MD Oct 13, 2019 14:10
[2019-10-13 14:26] LABS: BUN/CREATININE RATIO 15; CARBON DIOXIDE 24 MMOL/L (21-32); CHLORIDE 103 MMOL/L (98-107); CREATININE SERUM 0.66 MG/DL (0.60-1.30); GFR ESTIMATED > 60; POTASSIUM 3.5 MMOL/L (3.6-5.0); SODIUM 141 MMOL/L (135-145)
[2019-10-13 14:27] LABS: ALANINE AMINOTRANSFERASE 29 U/L (0-55); ALKALINE PHOSPHATASE 95 U/L (40-136); BILIRUBIN,TOTAL 0.2 MG/DL (0.1-1.0); GLUCOSE 150 MG/DL (70-105); TOTAL PROTEIN 6.8 GM/DL (6.4-8.2)
[2019-10-13 14:31] VITALS: BP_SYST 136; BP_SYST 142; BP_SYST 144; BP_DIAS 70; BP_DIAS 71; BP_DIAS 82
[2019-10-13 14:40] LABS: CLARITY,URINE CLEAR; COLOR,URINE YELLOW; GLUCOSE, URINE (UA) NEGATIVE (NEGATIVE); PH,URINE 5.5 (5-9); PROTEIN,URINE NEGATIVE (NEGATIVE)
[2019-10-13 14:41] LABS: BACTERIA,URINE TRACE /HPF; BILIRUBIN,URINE NEGATIVE (NEGATIVE); KETONES,URINE TRACE (NEGATIVE); LEUKOCYTE ESTERASE ,URINE NEGATIVE (NEGATIVE); NITRITE,URINE NEGATIVE (NEGATIVE)
--- NOTE | 2019-10-13 15:53 | Diagnostic Imaging Report ---
PROCEDURE: CT head without contrast. TECHNIQUE: Multiple contiguous axial images were obtained through the brain without the use of intravenous contrast. Auto Exposure Controls were utilized during the CT exam to meet ALARA standards for radiation dose reduction. INDICATION: Vomiting and confusion. COMPARISON: 07/05/2019. FINDINGS: There is generalized cortical atrophy. There is no evidence of intracranial hemorrhage. Ventricles are not dilated. No extra-axial fluid collection. Basal cisterns are clear. Mastoid air cells and paranasal sinuses are clear. IMPRESSION: No acute abnormality. Diffuse atrophy. Dictated by: Dictated on workstation # [id number]
[2019-10-13] MEDS ORDERED: ONDA4TAB11 PO (16:06)
[2019-10-13 16:15] VITALS: BP 136/75
== END 2019-10-13 16:09 | disposition home or self-care (01) ==
LOC: EDUNIT# 13:41 → ER FS 13:42
DX: R51 Headache (principal); R11.2 Nausea with vomiting, unspecified; Z88.8 Allergy status to other drugs, medicaments and biological substances
CPT/HCPCS: 36415; 70450; 80053; 81000; 85025

== ENCOUNTER → 2020-08-17 | Outpatient (CLI) | payer MEDICARE, BC ==
[~2020-08-17] MED LIST changes: +ONDA4TAB11 PO
--- NOTE | 2020-08-17 17:09 | Diagnostic Imaging Report ---
INDICATION: Back pain, status post injury. COMPARISON: 05/23/2013 FINDINGS: Frontal and lateral radiographic views of the lumbar spine were obtained. Post surgical changes of previous L3-L5 laminectomy and posterior fusion are identified. Surgical hardware is intact. THe patient is also status post fusion of the bilateral SI joints. Neurostimulator device is also present. Evaluation of static alignment shows slight grade 1 retrolisthesis of L2 on L3 and slight grade 1 anterolisthesis at L3-L4 and L4-L5. There is no evidence of jumped facets. Vertebral body heights are maintained. There is no acute fracture. There are multilevel degenerative changes. This is greatest at L2-L3 where there is advanced intervertebral disc height loss with sclerotic remodeling to the articular surfaces. Note is also made of facet arthropathy. Included small bowel loops are nondistended. IMPRESSION: 1. Post surgical changes of previous laminectomy and posterior fusion from L3 through L5. No evidence of hardware fracture or failure. 2. No new acute fracture or dislocation of the lumbar spine. 3. Multilevel degenerative changes of the lumbar spine, greatest at the L2-L3 level, as described above. Dictated by: Dictated on workstation # [id number]
--- NOTE | 2020-08-17 17:10 | Diagnostic Imaging Report ---
INDICATION: Back pain status post injury. COMPARISON: Chest radiograph dated 09/19/2019 FINDINGS: Frontal and lateral radiographic views of the chest were obtained. There is static wedge-shaped compression deformity of T12. Otherwise, thoracic vertebral body heights are maintained. Static alignment is preserved. There is no significant anteroretrolisthesis. There is no evidence of jumped facets. Mild multilevel degenerative changes are noted. Included portions of the lungs are clear. Indwelling neurostimulator device is also noted. Visualized portions of the wires are intact. IMPRESSION: 1. No new acute fracture or dislocation of the thoracic spine. 2. Mild multilevel degenerative changes. Dictated by: Dictated on workstation # [id number]
== END ==
LOC: LAB FS 16:03
PROVIDERS: ATTEND Nurse Practitioner Family
DX: M47.815 Spondylosis without myelopathy or radiculopathy, thoracolumbar region (principal); M81.8 Other osteoporosis without current pathological fracture; Z98.890 Other specified postprocedural states; Z98.1 Arthrodesis status; Z87.828 Personal history of other (healed) physical injury and trauma; Z91.81 History of falling
CPT/HCPCS: 72070; 72100

== ENCOUNTER → 2020-12-25 | Outpatient (CLI) | payer MEDICARE, BC | LOC: LAB FS 10:00 | PROVIDERS: ATTEND Orthopaedic Surgery Orthopaedic Surgery of the Spine | DX: Z01.812 Encounter for preprocedural laboratory examination (principal); Z20.822 Contact with and (suspected) exposure to COVID-19 | CPT/HCPCS: 87635 ==

== ENCOUNTER → 2021-02-19 | Outpatient (CLI) | payer MEDICARE, BC | LOC: LAB FS 10:10 | PROVIDERS: ATTEND Orthopaedic Surgery Orthopaedic Surgery of the Spine | DX: Z01.812 Encounter for preprocedural laboratory examination (principal); Z20.822 Contact with and (suspected) exposure to COVID-19 | CPT/HCPCS: 87635 ==

== ENCOUNTER → 2021-06-21 | Outpatient (CLI) | payer MEDICARE, BC ==
--- NOTE | 2021-06-21 10:04 | Diagnostic Imaging Report ---
HISTORY: Contusion and pain after fall TECHNIQUE: Frontal view of the pelvis COMPARISON: None FINDINGS: No acute fracture is seen in the pelvis. Alignment is normal. Femoral heads are well-seated in the acetabula bilaterally. There is internal fixation of the sacroiliac joints. Lumbar spine fusion hardware is noted. IMPRESSION: 1. No acute osseous abnormality is seen on this single view of the pelvis. Dictated by: Dictated on workstation # [id number]
--- NOTE | 2021-06-21 10:09 | Diagnostic Imaging Report ---
HISTORY: Right rib contusion and pain after fall. COMPARISON: 09/19/2019 TECHNIQUE: Frontal view of the chest. Frontal and oblique views of the right ribs. FINDINGS: There are interstitial somewhat reticular opacities in the lung bases and the peripheral right upper lung, likely from fibrotic change. No other consolidation is seen. There is no pleural effusion or pneumothorax. The cardiac silhouette is normal in size. There is mild cortical irregularity at the anterior right 5th and 6th ribs, may represent age-indeterminate nondisplaced fractures. IMPRESSION:. Mild cortical irregularity at the anterior right 5th and 6th ribs, may represent age-indeterminate fractures. Please correlate with point tenderness. Dictated by: Dictated on workstation # [id number]
== END ==
LOC: RAD FS 08:18
PROVIDERS: ATTEND Emergency Medicine
DX: S20.211A Contusion of right front wall of thorax, initial encounter (principal); S30.0XXA Contusion of lower back and pelvis, initial encounter
CPT/HCPCS: 71101; 72170

== ENCOUNTER → 2021-06-30 | Outpatient (CLI) | payer MEDICARE, BC ==
--- NOTE | 2021-06-30 12:15 | Diagnostic Imaging Report ---
PROCEDURE: CT abdomen and pelvis without contrast. TECHNIQUE: Multiple contiguous axial images were obtained through the abdomen and pelvis without the use of intravenous contrast. Auto Exposure Controls were utilized during the CT exam to meet ALARA standards for radiation dose reduction. INDICATION: Right upper quadrant pain and contusion status post recent fall. COMPARISON: None FINDINGS: Included portions of the lung bases show background chronic appearing interstitial lung disease. Moderate hiatal hernia is also noted. CT ABDOMEN: Patient is status post previous gastric bypass. Small bowel loops are nondistended. Moderate air and stool is noted scattered throughout the colon. Normal appendix is identified. The kidneys, adrenal glands, spleen, and pancreas have an unremarkable noncontrast CT appearance. There is mild intrahepatic biliary ductal dilatation. Common bile duct is also moderately distended. It measures 1.5 cm in diameter. Gallbladder is surgically absent. No suspicious hepatic mass type lesions are seen on this noncontrast study. There is no loculated fluid collection, free fluid, nor free air within the abdomen. No abnormal mesenteric or retro-peritoneal adenopathy is seen. There is moderate diffuse calcified aortic and arterial atherosclerosis. Osseous structures show no acute abnormalities. CT PELVIS: Urinary bladder is unopacified and essentially decompressed. There is no loculated fluid collection or free air. There is however small amount of free fluid within the pelvis. No abnormal adenopathy is seen. Osseous structures show no acute abnormalities. IMPRESSION: 1. Trace amount of free fluid within the pelvis. Although considered abnormal in a postmenopausal patient, exact etiology is indeterminate. Please note, there is no evidence of hemoperitoneum. 2. Moderate intra and extra hepatic biliary ductal dilatation. Findings may be a result of previous cholecystectomy and patient's age. If there is concern for biliary obstruction, further evaluation with MRCP or ERCP is advised. 3. Moderate colonic air and stool. Please correlate for constipation. Dictated by: Dictated on workstation # [id number]
== END ==
LOC: RAD FS 11:23
PROVIDERS: ATTEND Emergency Medicine
DX: S30.0XXD Contusion of lower back and pelvis, subsequent encounter (principal); G89.11 Acute pain due to trauma; K83.8 Other specified diseases of biliary tract; R29.6 Repeated falls
CPT/HCPCS: 74176

== ENCOUNTER → 2022-01-10 | Outpatient (CLI) | payer MEDICARE, BC ==
--- NOTE | 2022-01-10 18:26 | Diagnostic Imaging Report ---
INDICATION: Recent fall. Bilateral hip pain. COMPARISON: 06/21/2021. FINDINGS: Frontal radiographic view of the pelvis and multiple dedicated radiographic views of bilateral hips were obtained. Postsurgical changes of previous arthrodesis of the bilateral SI joints is again identified. Postsurgical changes of previous lumbar fusion are also partially included within the [id number]. No unexpected radiopaque foreign bodies are seen. Osseous pelvis is intact. Pubic symphysis is within normal limits. Bilateral femoroacetabular joint spaces are maintained. Included portions of the proximal femurs are intact. IMPRESSION: 1. No new acute osseous abnormality of the pelvis or hips. Dictated by: Dictated on workstation # [id number]
--- NOTE | 2022-01-10 19:00 | Diagnostic Imaging Report ---
INDICATION: Fall, pain. FINDINGS: Three views of the right elbow showed no fracture, dislocation, joint effusion or displaced fat pad. No articular irregularity. No cortical buckling. IMPRESSION: No acute appearing abnormality. Dictated by: Dictated on workstation # [id number]
--- NOTE | 2022-01-10 19:46 | Diagnostic Imaging Report ---
INDICATION: Fall, with right forearm pain. AP and lateral views of the right forearm are obtained. FINDINGS: These views are somewhat limited; there is no true AP view. There does appear to be a distal radial fracture, best seen on the off lateral view. Recommend full right wrist series for further evaluation. IMPRESSION: Findings suspicious for a distal radial fracture, somewhat limited views. Recommend dedicated wrist views for further evaluation. Proximal portions of the radius and ulna appear intact. Dictated by: Dictated on workstation # [id number]
== END ==
LOC: RAD FS 16:07
PROVIDERS: ATTEND Nurse Practitioner Family
DX: M25.551 Pain in right hip (principal); M25.552 Pain in left hip; M54.59 Other low back pain; R22.31 Localized swelling, mass and lump, right upper limb; M25.521 Pain in right elbow; M79.631 Pain in right forearm; W19.XXXA Unspecified fall, initial encounter
CPT/HCPCS: 73080; 73090; 73521

== ENCOUNTER → 2022-01-13 | Outpatient (CLI) | payer MEDICARE, BC ==
--- NOTE | 2022-01-13 15:41 | Diagnostic Imaging Report ---
INDICATION: Fall with injury to right wrist AP, oblique and lateral views of the right wrist are obtained with comparison made to study of 01/10/2022 Mildly angulated distal radial metaphyseal fracture is again demonstrated. No obvious intra-articular offset is identified. There is a slightly displaced ulnar styloid process fracture. Carpal bones appear to be intact. No other acute fracture or malalignment is seen. IMPRESSION: Mildly angulated distal radial metaphyseal fracture and mildly displaced ulnar stylus fracture are similar when compared to study of 01/10/2022. Dictated by: Dictated on workstation # [id number]
== END ==
LOC: RAD FS 12:27
PROVIDERS: ATTEND Emergency Medicine
DX: S52.591A Other fractures of lower end of right radius, initial encounter for closed fracture (principal); S52.611A Displaced fracture of right ulna styloid process, initial encounter for closed fracture; S62.001A Unspecified fracture of navicular [scaphoid] bone of right wrist, initial encounter for closed fracture; W19.XXXA Unspecified fall, initial encounter
CPT/HCPCS: 73110

== ENCOUNTER → 2022-01-18 | Outpatient (CLI) | payer MEDICARE, BC ==
--- NOTE | 2022-01-18 13:36 | Diagnostic Imaging Report ---
INDICATION: Orthopedic evaluation. TECHNIQUE: AP, oblique, and lateral views of the right wrist were obtained with comparison made to the study of 01/13/2022. FINDINGS: There is a stable appearance of the mildly angulated fractures of the distal radius and ulna; however, no new abnormality is seen. There is no focal lytic or sclerotic lesion or other evidence of complication. IMPRESSION: Stable angulated fractures of the distal radius and ulna without new abnormality detected. Dictated by: Dictated on workstation # [id number]
== END ==
LOC: RAD FS 09:07
PROVIDERS: ATTEND Nurse Practitioner
DX: S52.591D Other fractures of lower end of right radius, subsequent encounter for closed fracture with routine healing (principal); X58.XXXD Exposure to other specified factors, subsequent encounter
CPT/HCPCS: 73110

== ENCOUNTER → 2022-02-01 | Outpatient (CLI) | payer MEDICARE, BC ==
--- NOTE | 2022-02-01 10:51 | Diagnostic Imaging Report ---
INDICATION: Follow-up fracture. COMPARISON: 01/18/2022 FINDINGS: Multiple radiographic views of the right wrist were obtained. Again identified is chronic deformity of the distal radius suggestive of old healed fracture. There is also chronic appearing ulnar styloid fracture. No new acute osseous abnormality is seen. Joint spaces are maintained. No unexpected radiopaque foreign bodies are identified. IMPRESSION: 1. Chronic deformities of the distal right radius and ulna. No new acute fracture or dislocation. Dictated by: Dictated on workstation # [id number]
== END ==
LOC: RAD FS 09:23
PROVIDERS: ATTEND Nurse Practitioner
DX: S52.591D Other fractures of lower end of right radius, subsequent encounter for closed fracture with routine healing (principal); X58.XXXD Exposure to other specified factors, subsequent encounter
CPT/HCPCS: 73110